=== PATIENT | male | born 1960 | race Caucasian/White ===

== ENCOUNTER → 2025-02-02 | Outpatient (CLI) | payer OTHER, SELFPAY | END | disposition home or self-care (01) | PROVIDERS: PCP Student in an Organized Health Care Education/Training Program | DX: R13.10 Dysphagia, unspecified (principal) | CPT/HCPCS: 74230 ==

== ENCOUNTER 2025-06-14 09:30 | Outpatient (RCR) | payer OTHER, SELFPAY ==
--- NOTE | 2025-01-14 09:13 | HP.SP.EVAL ---
Visit History Visit Info Date of Eval: 01/12/25 Visit: 1 Patient's Approved Number of Visits: 15 Insurance Date Limit: 07/05/25 Platform Builder: CLARI History Attending Doctor: MARIO MOON Referring Doctor: MARIO MOON Reason for Referral: DYSPHAGIA RX HERE Medical Diagnosis: Dysphagia Date of Onset of Diagnosis: 1990 Previous speech therapy: No Other Relevant Medical History/Diagnoses/Surgery: Patient had ACDF in 1990 and reported he has had difficulty with swallowing since then. He reported that he has sinus issues and has recently finished antibiotic Augmentin and is feeling better. Medications related to this diagnosis: Flonase Smoking Status: Unknown if ever smoked Diagnosis Diagnosis: Mild Dysphagia. Pain Is pain an issue with your current prescribed condition?: No Personal Preferred language: Georgian Subjective Dysphagia Symptoms Reported Symptoms/Problems with: Coughing, Difficulty Swallowing Solids and Difficulty Swallowing Liquids Current Diet Solids Current Diet: Regular Current Diet Liquids Current Liquids: Thin Objective Dysphagia Administered by Administered by: Self Thin Liquids Administred via: Cup Oral Transit: WNL Bolus clearance: fully cleared Gagging: No Cough: throat clear Pharyngeal phase: suspect pharyngeal deficits Patient Report: Patient reported no complaints. Comments: Noted a gulping type swallow sound for 1 out of 5 or 6 drinks. Drinks are larger in size and he demonstrated a throat clear on 50% of drinks. Regular Oral Preparation: WNL Oral Transit: WNL Bolus clearance: fully cleared Cough: none observed/unable to assess Pharyngeal phase: suspect pharyngeal deficits Patient Report: Patient reported he needed a drink for the bolus to go down. Comments: Patient reported that foods get stuck at times but nothing consistent that he can identify. He drinks after every few bites as things feel like the swallow doesn't trigger or there is something left in his throat. Swallowing Impairment Contributing Factors to Swallowing Impairment: Impaired Oral-Pharyngeal Transport Impact Impact on Safety & Functioning: Risk for Aspiration Comments: Patient presented with throat clearing and unable to determine at outpatient swallow evaluation if throat clearing is due to penetration/aspiration. Recommendations Modified Barium Swallow/Cookie Swallow Recommended: Yes Swallowing Treatment: Yes Diet Texture Recommendations Solids: Regular (Level 7) Liquids: Thin (Level 0) Safety Saftey Precautions/Swallowing Recommendations (Check all that Apply): Small Sips & Bites when Eating and Alternate Liquids & Solids Results Swallowing Within Normal Limits: No Swallowing Diagnosis: Dysphagia Unspecified (R13.10) Severity: Mild Objective Oral Motor Oral Status Dentition: WNL Labial Impairment: WNL Observation at Rest: WNL Closure: WNL Pucker: WNL Retraction: WNL Alternating Pucker/Retraction: WNL Involuntary Movement noted: No Lingual Impairment: WNL Protrusion: WNL Retraction: WNL Lateralization: WNL Involuntary Movement: No Jaw Impairment: WNL Respiratory Status Respiratory Status: Room Air Swallowing Performance Scale Swallowing Performance Scale Swallowing Performance Scale Result: 3 Mild Reference: Neuro-QoL instrument Radiation Oncology Patient Plan Plan Plan: Speech therapy is warranted for dysphagia. Patient has MBSS scheduled on 02/02/25 for instrumental analysis of swallowing. Recommend monthly sessions for patient education, diet analysis and home exercise program. Recommendations Treatment Warranted: Yes Treatment Warranted: Dysphagia Progress Prognosis: Good Frequency Frequency: Monthly Duration: 6 Months Visits in this POC: 6 Patient/Family Goal Patient/Family Goal: Patient wants to be able to eat without difficulty. Goals that are Established Determination:: Goals will be added/modified as deemed necessary and appropriate. Therapy will be discontinued when results of re-evaluation indicate therapy is no longer needed or lack of progress has been documented. Goal #1-5 Goal #1: Patient will tolerate the least restrictive means of nutrition to facilitate adequate hydration/nutrition with optimum safety and efficiency of swallowing function during P.O. intake without overt signs and symptoms of aspiration. Goal #2: Pt will participate in Modified Barium Swallow (MBS) study to objectively assess Pt's oropharyngeal swallow function to determine the least restrictive means of nutrition with goals added as appropriate. Goal #3: Patient education regarding results of MBS and home program. Education Patient has Indicated that the Following Identified Educational Needs: None The Patient has indicated that they have no educational or learning abilities that may effect their care.: Yes Patient Instruction Patient Education: Diagnosis, Treatment Plan and Diet Level Person Taught: Patient and Significant Other Teaching Method: Discussion Response to teaching: Verbalize Understanding
--- NOTE | 2025-02-02 15:59 | SP.MBSS_ITS ---
Modified Barium Swallow Patient Information Study Date: 02/02/25 Study Time: 13:00 Direct Billable Minutes: 113 Total Minutes procedure & reportin Diagnosis: Dysphagia R13.10 Referring Physician: Elinor Prather Reason for Referral: Assess swallow function, assess risk for aspiration, and determine recommendations for least restrictive diet textures and compensatory strategies to facilitate safe po intake. Medical History: The patient reports no significant PMH related to dysphagia other than cervical surgery 1990. Pt has had dysphagia since the surgery on his cervical spine, but swallowing has worsened in the past 8 months. Pt reports difficulty swallowing solids mostly w/ sensation of foods becoming stuck, which somewhat improves w/ a liquid wash; however, at times liquids and his own saliva are difficult to swallow. He has coughing episodes, but denies hx of choking or need for the Heimlich. No vomiting or regurgitation. At times, he feels it is hard to initiate swallowing his saliva and he requires a drink to start his swallow. He denies xerostomia. OP speech therapy swallowing evaluation was recently completed at [facility] recommending regular textures / thin liquids w/ aspiration precautions and MBSS referral to further assess aspiration risk and to determine oropharyngeal exercise program for the patient. Current Diet Ordered: Regular textures / Thin liquids Dentition: WNL and Natural Teeth Mental Status: WNL Respiratory Status: Oxygenating on Room Air Penetration-Aspiration Scale Penetration-Aspiration Scale: OBJECTIVE ASSESSMENT OF SWALLOW FUNCTION (QUANTITATIVE ? PER TRIAL): PENETRATION / ASPIRATION SCALE (RAYMOND): 1 = does not enter airway 2 = enters airway/above vocal folds/ejected 3 = enters airway/above vocal folds/not ejected 4 = enters airway/contacts vocal folds/ejected 5 = enters airway/contacts vocal folds/not ejected 6 = enters airway/below vocal folds/ejected 7 = enters airway/below vocal folds/not ejected despite effort 8 = enters airway/below vocal folds/no effort VIDEOFLOROSCOPIC SCALE SCORE (RAYMOND): Grade I = aspiration of material that has penetrated into the laryngeal vestibule, intact cough reflex Grade II = aspiration < 10 % of the bolus, intact cough reflex Grade III = aspiration of < 10 % of the bolus, reduced cough reflex or aspiration of > 10 % of the bolus, intact cough reflex Grade IV = aspiration of > 10 % of the bolus, reduced cough reflex Penetration-Aspiration Scale Score Thin Liquid via teaspoon: Result: 2= enter airway/above vocal folds/ejected Thin Liquid via teaspoon Trial 2: Result: 1= does not enter airway Thin Liquid via sequential sips: cup: Result: 2= enter airway/above vocal folds/ejected [facility] Thick Liquid via small single sip: cup: Result: 1= does not enter airway Pudding via teaspoon: Result: 1= does not enter airway Comment: Esophageal screen - Retention in the middle esophagus. Thin Liquid via single sip: straw: Result: 1= does not enter airway Comment: Esophageal screen - Minimal improvement in clearance of pudding retention in the middle esophagus with liquid wash X2 (additional sip taken during esophageal screen). 1/2 Cookie: Result: 1= does not enter airway Comment: Esophageal screen - Retention in the lower esophagus. Thin Liquid via sequential sips:straw: Result: 2= enter airway/above vocal folds/ejected Comment: Esophageal screen - Sequential thin mostly cleared esophageal retention of cookie. Oral Phase Labial Seal: Interlabial escape, no progression to anterior lip Tongue Control During Bolus Hold: Posterior escape of less than half of bolus Bolus Preparation/Mastication: Timely and efficient chewing and mashing Bolus Transport/Lingual Motion: Delayed initiation of tongue motion Oral Residue: Residue collection on oral structures (Piecemeal deglutition pudding and cookie) Pharyngeal Phase Initiation of Pharyngeal Swallow: Bolus head in pyriforms Soft Palate Elevation: Trace column of contrast/air between soft palate and pharyngeal wall Laryngeal Elevation: Comp. Superior move thyroid cart w/comp. apprx arytenoid cart-epig pet Anterior Hyoid Excursion: Partial anterior movement Epiglottic Movement: Complete inversion Laryngeal Vestibule Closure at Height of Swallow: Incomplete; narrow column of air/contrast in laryngeal vestibule (trace laryngeal penetration of liquids, which fully ejected after the swallow was complete) Pharyngeal Stripping Wave: Present - diminished Pharyngoesophageal Segment Opening: Parital distension and partial duration; parital obstruction of flow (trace retention in UES) Tongue Base Retraction: Narrow column of contrast between tongue base & post. pharyngeal wall Pharyngeal Residue: Collection of residue within or on pharyngeal structures Esophageal Phase Esophageal Clearance: Esophageal retention Diagnosis/Impression Diagnosis: Mild oropharyngeal dysphagia R13.12; Esophageal dysphagia R13.14 Impression: The oral phase is primarily marked by... -Mildly decreased bolus control w/ <1/2 of sequential thin spilling to the pyriforms prior to swallow onset. -Mildly delayed tongue motion for A-P transport. The pharyngeal phase is primarily marked by... -Mildly decreased TB retraction and pharyngeal stripping wave w/ mild pharyngeal residues, but independent initiation of a second swallow each sip improving pharyngeal residues to trace. -Mildly decreased airway closure due to decreased anterior hyoid excursion; however, good laryngeal elevation w/ complete ejection of trace laryngeal penetration of liquids throughout the study. No aspiration. The esophageal phase is primarily marked by... -Retention of pudding in middle esophagus w/ minimal improvement w/ liquid washes. -Retention of cookie in lower esophagus, which mostly cleared w/ liquid washes. Recommendations Diet: Regular Textures (Moisten Dry Textures) and Thin Liquids Comment: If pt experiences sensation of food caught in his throat despite use liquid wash, stop meal (remain sitting upright) until sensation clears and resume at a later time due to observed deficits in esophageal clearance during MBSS. Compensatory Strategies: Small Bites, Small Sips, Slow Rate, Multiple Swallows (Pt independently completes double swallows as needed), Alternate bites/solids and sips/liquids (Take a few sips after every 1-2 bites) and Sitting upright (During and 60min after meal) Recommend Repeat Modified Barium Swallow: TBD Need for Skilled Speech Therapy Services: Yes Comment: -Train the patient in use of strategies to decrease risk for aspiration and refl ux aspiration. -Ongoing assessment of diet tolerance of recommended textures. -Train the patient in oropharyngeal exercise program to improve anterior hyoid excursion, TB retraction, and pharyngeal stripping wave (effortful, Ximena, Cammie). Recommended Referrals: GI Consult Education Completed: 1. Described result of evaluation., 2. Pt understands evaluation & agrees with goals and treatment plan. and 7. Pt requires further education on strategies & risks. Status Active ST Patient: Active Contact Information [facility] Speech Therapy:: Liz Hdez M.A. CCC-DRIVER SUPERVISOR? Speech-Language Pathologist?? [facility] [address] [place] [address]? [email or web address]?? [phone]
--- NOTE | 2025-06-14 09:57 | HP.SP.DC_ITS ---
ST Discharge Summary Discharged: Discharge: Brock Acosta is discharged from [facility] as of June 14, 2025. He was evaluated on 01/12/25 for dysphagia. He completed an MBSS on 02/02/25 with a diet of Regular Textures (Moisten Dry Textures) and Thin Liquids. Also listed on MBSS: If pt experiences a sensation of food caught in his throat despite use liquid wash, stop meal (remain sitting upright) until sensation clears and resume at a later time due to observed deficits in esophageal clearance during MBSS. Compensatory Strategies: Small Bites, Small Sips, Slow Rate, Multiple Swallows (Pt independently completes double swallows as needed), Alternate bites/solids and sips/liquids (Take a few sips after every 1-2 bites) and Sitting upright (During and 60min after meal). He was treated for one session in January to give home exercise program and follow up sessions were completed in March and May. No further therapy is recommended as patient is independent with his home program and he stated that he eats anything he wants and is aware of using his strategies. Thank you for allowing me to participate in the care of this patient.
== END 2025-06-14 14:26 | disposition home or self-care (01) ==
LOC: SP 09:30
PROVIDERS: PCP Student in an Organized Health Care Education/Training Program
DX: R13.10 Dysphagia, unspecified (principal)
CPT/HCPCS: 92526; 92610; 92611